=== PATIENT | female | born 2000 | race Caucasian/White ===

== ENCOUNTER 2024-02-04 16:11 | Emergency (ER) | payer BC, SELFPAY ==
[2024-02-04 16:12] VITALS: BP 142/87
[2024-02-04 17:38] VITALS: BP 107/68; BMI 23.7
[2024-02-04 17:51] LABS: % Basophils 0.4 % (0-2); % Eosinophils 0.6 % (0-6); % Immature Granulocytes 0.3 % (0-0.5); % Lymphocytes 22.1 % (20.5-51.1); % Monocytes 7.7 % (1.7-9.3); % Neutrophils 68.9 % (42.2-75.2); Absolute Eosinophils 0.1 10^3/uL (0-0.7); Absolute Lymphocytes 2.2 10^3/uL (1.2-3.4); Absolute Monocytes 0.8 10^3/uL (0.1-0.6); Absolute Neutrophils 6.8 10^3/uL (1.4-6.5); Hematocrit 37.3 % (37.0-47.0); Hemoglobin 13.3 g/dL (12.0-16.0); Mean Corp Hgb Conc. 35.7 g/dL (33.0-37.0); Mean Corpuscular Hgb 31.1 pg (27.0-31.0); Mean Corpuscular Volume 87.4 fL (81.0-99.0); Mean Platelet Volume 9.4 fL (7.4-10.4); Nucleated Red Blood Cells % 0 %; Platelet Count 393 10^3/uL (130-400); Red Blood Cell Count 4.27 10^6/uL (4.20-5.40); Red Cell Dist. Width 12.3 % (11.5-14.5); White Blood Cell Count 9.9 10^3/uL (4.8-10.8)
[2024-02-04 18:05] LABS: ALT (SGPT) 14 U/L (0-35); AST (SGOT) 21 U/L (14-36); Albumin 4.6 g/dl (3.5-5.0); Alkaline Phosphatase 53 U/L (38-126); Blood Urea Nitrogen 11 mg/dl (7-17); Calcium 9.5 mg/dl (8.4-10.2); Carbon Dioxide 26 mmol/L (22-30); Chloride 105 mmol/L (98-107); Estimated Creatinine Clearance 95 ml/min; Glucose 82 mg/dl (70-99); Potassium 4.3 mmol/L (3.5-5.1); Sodium 137 mmol/L (135-145); Total Bilirubin 0.4 mg/dl (0.2-1.3); Total Protein 7.3 g/dl (6.3-8.2); eGFR > 60.00
--- NOTE | 2024-02-04 18:08 | ED.GENMED ---
History of Present Illness
General
Chief Complaint: Heart Rate Problem
Source: patient
Exam Limitations: none
Time Seen by Provider: 02/04/24 17:25
History of Present Illness
History of Present Illness:
23-year-old female complaining of some chest tightness heart racing. Started a little last night. Worse today. No pleuritic pain no abdominal pain no fever chills or other complaints. Patient has had chronic neck pain with some chronic headaches
for about a year. She does see a chiropractor who does manipulation. She receives this once or so a month. She has had chiropractic manipulation recently. However her neck pain and head pain are no different than her baseline. She denies
vertigo dizziness visual issues or other neurologic symptoms.
Past History
Past History
ED Past Medical History: Other (Migraine headaches)
ED Past Surgical History: None
Social History
Tobacco: Non-smoker
Alcohol: Occasional
Drug: None
Personal: Single
Living: with family
Employment: Student ([employer])
Family History
Family History: Other (Noncontributory)
Review of Systems
Review of Systems
All Other Systems: Not applicable
Constitutional: Denies fever
Cardiac: Denies syncope
ABD/GI: Reports no symptoms
Phy Exam
Physical Exam
Physical Exam:
GENERAL: Alert and oriented in no apparent distress
EYE: Orbits normal.
NECK: Supple, no carotid bruit. Nontender
ENT: Pharynx without erythema
CARDIAC: Regular rate and rhythm without any obvious murmurs.
LUNGS: Clear breath sounds,normal
ABDOMEN: Soft, without focal tenderness or distention
NEUROLOGICAL: Alert and oriented , cranial nerves II through XII intact. Speech normal. [id number] normal. No drift.
SKIN: Warm and dry, no rash or lesion, no discoloration, skin intact.
MUSCULOSKELETAL: No edema,no deformity.Good color
PSYCH: Normal and appropriate interaction.
Course
Orders/Labs/Results
Orders:
Orders
02/04/24 16:15
ECG [Electrocardiogram (*1)] Urgent
Reason for Study: Palpitations
EKG- Treatment ONCE
02/04/24 17:37
Complete Blood Count/With Diff Urgent
Comprehensive Metabolic Panel Urgent
Free T4 Urgent
Comment: ADD ON
HCG, Serum Qualitative Screen Urgent
Comment: ADD ON
TSH Urgent
Troponin I Urgent
02/04/24 18:08
Add On- LAB Urgent
Tests Added?: qual bhcg
02/04/24 18:11
D-Dimer Urgent
02/04/24 19:08
Add On- LAB Urgent
Tests Added?: free t4
CXR2 [CR Chest - 2 Views ] Urgent
Comment:
Reason For Exam: chest tightness
02/04/24 20:31
CT Head W/o Iv Contrast Urgent
Comment:
Reason For Exam: zhao
CT Neck Angio W/wo Iv Contrast Urgent
Comment:
Reason For Exam: zhao neck pain. chiropractic manipulation
Abnormal Lab Results
02/04/24
17:37
MCH 31.1 H pg
(27.0-31.0)
Absolute Neuts (auto) 6.8 H 10^3/uL
(1.4-6.5)
Absolute Monos (auto) 0.8 H 10^3/uL
(0.1-0.6)
TSH 0.24 L uIU/ml
(0.47-4.68)
02/04/24 17:37
02/04/24 17:37
Vital Signs
Initial and Last Documented VS:
Initial Vital Signs
Temp Pulse Resp BP Pulse Ox
98.0 F 108 16 142/87 100
02/04/24 16:12 02/04/24 16:12 02/04/24 16:12 02/04/24 16:12 02/04/24 16:12
Last Documented Vital Signs
Temp Pulse Resp BP Pulse Ox
98.0 F 73 16 110/70 98
02/04/24 16:12 02/04/24 22:12 02/04/24 20:19 02/04/24 22:12 02/04/24 22:12
MDM/Problems Addressed
Differential Diagnosis Includes:
Patient primarily complaining of upper chest tightness and some heart racing that started last night. Patient denies acute symptoms related to head or neck. She mention this is an issue but this has been stable over the last year and there are
noes new symptoms related to this. She also denies any neurologic symptoms and has a normal neurologic exam. For this reason I do not feel a CT angiography of the neck is warranted. Pretest probability is incredibly low and feel the radiation is
not warranted. This was all discussed with the patient and mom. D-dimer is negative. Cardiac testing is normal. Await chest x-ray.
*Radiology
Radiology exam reviewed: preliminary read by ED provider (Negative chest x-ray) and radiology read reviewed (Negative)
*Pulse Oximetry
Patient hypoxic: no
*EKG
Interpreted by ED Provider?: Yes
Interpretation: abnormal
Comparison EKG: no comparison EKG present
Heart Rate: 110
Rate: tachycardiac
Rhythm: sinus
Buchtel: normal axis
Interval: normal interval
QRS Pattern: normal QRS
Ischemia: no ischemia
*Critical Care Note
Total Time (30-74mins, 75-104mins- exclusive of procedures): Not Applicable
Data Reviewed
Review of Other/Old Records Reveals: Records
Update Note
Update Note:
Patient is remained medically stable nontoxic in no distress. Workup unremarkable. Clinical hyperthyroidism. Do not feel this explains her symptoms. Again very highly doubt any dissection or vascular issue. Do not feel radiologic testing for
this is warranted. Patient's neck symptoms have been going on for 6 to 12 months and are stable. She has no neurologic symptoms. No vertigo no disequilibrium. No current headache.
ED Attending Note
-
Portions of this chart may have been created with voice recognition software.� Occasional wrong word or��sound alike� substitutions may have occurred due to the inherent limitations of voice recognition software.
Discharge Plan
Departure
Patient Disposition: Home (Routine Discharge)
Date of Disposition: 02/04/24
Time of Disposition: 20:23
Patient with high blood pressure during this ER visit?: No
Discharge Problem:
Palpitations/chest pressure, Ongoing neck pain
Prescriptions:
No Action
Zyrtec
1 tab PO DAILY
prochlorperazine maleate [Compazine] 10 mg tablet
10 mg PO Q8H PRN (Reason: migraine, nausea/vomiting) Qty: 10 0RF
ondansetron 4 mg tablet,disintegrating
4 mg PO QID PRN (Reason: nausea and vomiting) Qty: 20 0RF
Referrals:
Francoise Brown MD [Consulting Staff] - Next open appointment
Den Sahni MD [Active] - Next open appointment
UNKNOWN - PT DOES,NOT KNOW [Family Provider] -
Activity Restrictions/Additional Instructions:
Follow-up closely with your physician. I also gave you the name of endocrinology and orthopedics for follow-up
Return with worsening symptoms increased palpitations increased chest pain increase shortness of breath or any unusual neurologic symptoms.
Interventions
Interventions:
*Risk Screen - Suicide Last Done: 02/04/24 17:38
*General Assessment Last Done: 02/04/24 17:38
*Neglect/Abuse Screening Last Done: 02/04/24 17:38
ED- Fall Risk Assessment Last Done: 02/04/24 17:38
*ED COVID-19 Vaccine History Last Done: 02/04/24 17:38
*Nursing Disposition Last Done: 02/04/24 22:27
ED- Cardiac Assessment Last Done: 02/04/24 17:38
ED- Pulmonary Assessment Last Done: 02/04/24 17:38
Discharge Date and Time
Discharge Date/Time: 02/04/24 22:27
Print Language: KAZAKH
[2024-02-04 18:17] LABS: Troponin I < 0.012 ng/ml
[2024-02-04 18:35] LABS: TSH 0.24 uIU/ml (0.47-4.68)
[2024-02-04 18:43] LABS: HCG, Serum Qualitative Screen Negative
[2024-02-04 18:44] LABS: D-Dimer < 0.27 ug/mlFEU (0.00-0.50)
[2024-02-04 19:40] VITALS: BP 108/81
[2024-02-04 20:10] LABS: Free T4 1.05 ng/dl (0.78-2.19)
[2024-02-04 20:19] VITALS: BP 111/80
[2024-02-04 22:12] VITALS: BP 110/70
== END 2024-02-04 22:27 | disposition home or self-care (01) ==
LOC: EMR 16:11
PROVIDERS: EMERGENCY PHYSICIAN Emergency Medicine
DX: R07.89 Other chest pain (principal); R00.2 Palpitations; M54.2 Cervicalgia; G43.909 Migraine, unspecified, not intractable, without status migrainosus; G89.29 Other chronic pain; Z91.018 Allergy to other foods
CPT/HCPCS: 99285; 70450; 70498; 71046; 80053; 84439; 84443; 84484; 84703; 85025; 85379; 93005; Q9967

== ENCOUNTER 2024-08-18 06:22 | Outpatient (RCR) | payer BC, SELFPAY | END 2024-08-18 23:59 | disposition home or self-care (01) | LOC: RPT 06:22 | PROVIDERS: ATTENDING PHYSICIAN Family Medicine Sports Medicine; FAMILY PHYSICIAN Family Medicine | DX: M54.2 Cervicalgia (principal); Z73.6 Limitation of activities due to disability; M25.512 Pain in left shoulder; R20.2 Paresthesia of skin; R51.9 Headache, unspecified | CPT/HCPCS: 97010; 97110; 97140; 97162 ==

== ENCOUNTER 2024-09-22 07:23 | Outpatient (RCR) | payer BC, SELFPAY | END 2024-09-22 23:59 | disposition home or self-care (01) | LOC: RPT 07:23 | PROVIDERS: ATTENDING PHYSICIAN Family Medicine Sports Medicine; FAMILY PHYSICIAN Family Medicine | DX: M54.2 Cervicalgia (principal); Z73.6 Limitation of activities due to disability; M25.512 Pain in left shoulder; R20.2 Paresthesia of skin; R51.9 Headache, unspecified | CPT/HCPCS: 97010; 97110; 97140 ==

== ENCOUNTER 2024-10-05 06:19 | Outpatient (RCR) | payer BC, SELFPAY | END 2024-10-05 23:59 | disposition home or self-care (01) | LOC: RPT 06:19 | PROVIDERS: ATTENDING PHYSICIAN Family Medicine Sports Medicine; FAMILY PHYSICIAN Family Medicine | DX: M54.2 Cervicalgia (principal); M25.512 Pain in left shoulder; R20.2 Paresthesia of skin; R51.9 Headache, unspecified; Z73.6 Limitation of activities due to disability | CPT/HCPCS: 97010; 97110; 97140 ==

== ENCOUNTER 2024-10-11 21:58 | Emergency (ER) | payer BC, SELFPAY ==
[2024-10-11 22:02] VITALS: BP 113/77
[2024-10-11 22:17] VITALS: BMI 23.4
--- NOTE | 2024-10-12 00:24 | ED.GENMED ---
History of Present Illness
General
Chief Complaint: Head Injury
Source: patient and family
Exam Limitations: none
Time Seen by Provider: 10/11/24 23:56
Nursing documentation reviewed up to this point in time: agreed with
History of Present Illness
History of Present Illness:
23-year-old female healthy slipped into a car door which struck the right side of her face just beside the right eye happened at 6 PM initially had some pain which improved feeling better now, no headache no nausea no vomiting vision appears normal
for the patient
Past History
Past History
ED Past Medical History: Other (Migraine headaches)
ED Past Surgical History: None
Social History
Tobacco: Non-smoker
Alcohol: Occasional
Drug: None
Personal: Single
Living: with family
Employment: Student ([employer])
Family History
Family History: Other (Noncontributory)
Review of Systems
Review of Systems
All Other Systems: Not applicable
Respiratory: Reports no symptoms
Cardiac: Reports no symptoms
ABD/GI: Reports no symptoms
: Reports no symptoms
Neurological: Reports other (Mild pressure around the right eye); Denies dizzy
Phy Exam
Physical Exam
Physical Exam:
Physical Exam
General: no apparent distress, not acutely ill
Neck: No proptosis extraocular movements intact bony structures of the orbit intact
Heart: s1/s2 regular rate and rhythm, no murmur. equal radial pulses.
Lungs: no acute respiratory distress. clear bilaterally
Neuro: alert and oriented. no focal neurological deficits
Skin: no rash
Psychiatric: well kept. interactive and cooperative
Extremities: no edema.
Course
Orders/Labs/Results
Orders:
Orders
10/12/24 00:25
Visual Acuity- Treatment ONCE
Vital Signs
Initial and Last Documented VS:
Initial Vital Signs
Temp Pulse Resp BP Pulse Ox
98.6 F 103 18 113/77 100
10/11/24 22:02 10/11/24 22:02 10/11/24 22:02 10/11/24 22:02 10/11/24 22:02
Last Documented Vital Signs
Temp Pulse Resp BP Pulse Ox
98.6 F 103 18 113/77 100
10/11/24 22:02 10/11/24 22:02 10/11/24 22:02 10/11/24 22:02 10/11/24 22:02
MDM/Problems Addressed
Differential Diagnosis Includes:
Contusion mild head injury, no signs of laceration no signs of significant orbital fracture no proptosis no entrapment
*Critical Care Note
Total Time (30-74mins, 75-104mins- exclusive of procedures): Not Applicable
ED Attending Note
-
Portions of this chart may have been created with voice recognition software.� Occasional wrong word or��sound alike� substitutions may have occurred due to the inherent limitations of voice recognition software.
Discharge Plan
Departure
Patient Disposition: Home (Routine Discharge)
Date of Disposition: 10/12/24
Time of Disposition: 00:23
Patient with high blood pressure during this ER visit?: No
Condition: Good
Discharge Problem:
Mild closed head injury
Instructions: Concussion, Adult (DC), Contusion (DC), Minor Head Injury (DC)
Prescriptions:
No Action
Zyrtec
1 tab PO DAILY
prochlorperazine maleate [Compazine] 10 mg tablet
10 mg PO Q8H PRN (Reason: migraine, nausea/vomiting) Qty: 10 0RF
ondansetron 4 mg tablet,disintegrating
4 mg PO QID PRN (Reason: nausea and vomiting) Qty: 20 0RF
Referrals:
Yessi Romeo DO [Family Provider] -
Activity Restrictions/Additional Instructions:
Tylenol or ibuprofen for pain
Interventions
Interventions:
*Risk Screen - Suicide Last Done: 10/11/24 22:00
*General Assessment Last Done: 10/11/24 22:00
*Neglect/Abuse Screening Last Done: 10/11/24 22:18
*ED- Fall Risk Assessment Last Done: 10/11/24 22:00
*ED COVID-19 Vaccine History Last Done: 10/11/24 22:00
ED- Neurological Assessment Last Done: 10/11/24 22:18
ED-Skin Assessment Last Done: 10/11/24 22:18
Discharge Date and Time
Print Language: [id number]
== END 2024-10-12 00:34 | disposition home or self-care (01) ==
LOC: EMR 21:58
PROVIDERS: EMERGENCY PHYSICIAN Emergency Medicine; FAMILY PHYSICIAN Family Medicine
DX: S09.90XA Unspecified injury of head, initial encounter (principal); W22.09XA Striking against other stationary object, initial encounter
CPT/HCPCS: 99282